=== PATIENT | male | born 1955 | race Caucasian/White ===

== ENCOUNTER 2016-11-12 01:25 | Inpatient (IN) | payer MEDICAID ==
[~2016-11-12] VITALS: Ht 157.5 cm; Wt 81.6 kg
[~2016-11-12 01:25] MED LIST: METF500T64 PO
[2016-11-12 01:29] VITALS: BP 137/63
[2016-11-12 01:50] LABS: BASOPHILS # (AUTO) 0.1 K/uL (0.00-0.22); BASOPHILS % (AUTO) 1.4 % (0.0-2.0); EOSINOPHILS # (AUTO) 0.2 K/uL (0-0.4); EOSINOPHILS % (AUTO) 3.7 % (0.0-4.0); HEMATOCRIT 37.4 % (36-52); HEMOGLOBIN 12.7 g/dL (12.0-18.0); LYMPHOCYTES # (AUTO) 1.6 K/uL (2.0-11.5); LYMPHOCYTES % (AUTO) 28.3 % (20.5-51.1); MEAN CORPUSCULAR HEMOGLOBIN 30 pg (27-31); MEAN CORPUSCULAR HGB CONC 34 g/dL (33-37); MEAN CORPUSCULAR VOLUME 88 fL (80-94); MONOCYTES # (AUTO) 0.3 K/uL (0.8-1.0); NEUTROPHILS # (AUTO) 3.4 K/uL (1.8-7.7); NEUTROPHILS % (AUTO) 60.6 % (42.2-75.2); PLATELET COUNT (AUTO) 166 K/uL (140-450); RED BLOOD CELL COUNT(AUTO) 4.27 MIL/uL (4.20-6.10); RED CELL DISTRIBUTION WIDTH 12.8 % (11.6-13.7); WHITE BLOOD COUNT (AUTO) 5.6 K/uL (4.8-10.8)
[2016-11-12 02:09] LABS: ALBUMIN 3.4 g/dL (3.4-5.0); ANION GAP 11.9 (8-16); CALCIUM 8.3 mg/dL (8.5-10.1); CARBON DIOXIDE 29.8 mmol/L (21-32); CREATININE 0.8 mg/dL (0.7-1.3); INR 0.9 (0.8-1.2); PARTIAL THROMBOPLASTIN TIME 24.3 secs (22-35.6); POTASSIUM 3.7 mmol/L (3.5-5.1); PROTHROMBIN TIME 9.1 secs (10.8-13.4); TOTAL BILIRUBIN 0.3 mg/dL (0.0-1.0); TOTAL PROTEIN, SERUM 7.3 g/dL (6.4-8.2)
--- NOTE | 2016-11-12 02:40 | NUR ---
AMBULATED TO ER BED 5
[2016-11-12] MEDS ORDERED: KETOROLAC 30 MG/ML VIAL IVP ONE (02:55)
[2016-11-12] MEDS ORDERED: ONDANSETRON 4 MG/2 ML VIAL IM/IVP PRN (03:05)
[2016-11-12] MEDS ORDERED: MORPHINE SULFATE 2 MG/ML SYR IVP PRN (03:05)
[2016-11-12] MEDS ORDERED: ACETAMINOPHEN 325 MG TAB PO PRN (03:05)
[2016-11-12] MEDS ORDERED: HYDROcodone/APAP 7.5/325 MG 1 TAB PO PRN (03:05)
[2016-11-12] MEDS ORDERED: DOCUSATE SODIUM 100 MG GELCAP PO PRN (03:05)
--- NOTE | 2016-11-12 03:15 | NUR ---
ERMD AT THE BEDSIDE EVALUATED PT
[2016-11-12] MEDS ORDERED: ASPIRIN 81 MG TAB.CHEW PO ONE (03:20)
[2016-11-12] MEDS ORDERED: NITROGLYCERIN 0.4 MG TAB SL PRN (03:20)
[2016-11-12] MEDS ORDERED: DEXTROSE 50% 50 ML SYR IVP PRN ×2 (03:35→08:20)
--- NOTE | 2016-11-12 03:44 | NUR ---
PATIENT PRESENTS TO ED WITH CHEST PAIN AND DIFF OF BREATHING 30 MINUTES, WHILE SLEEPING, DENIES N/V/D; SKIN IS PINK/WARM/DRY; AAOX4 WITH EVEN AND STEADY GAIT; LUNGS CLEAR BL; HR EVEN AND REGULAR; PT DENIES ANY FEVER,PATIENT STATES PAIN OF 0/10 AT THIS TIME; PATIENT POSITIONED FOR COMFORT; HOB ELEVATED; BEDRAILS UP X2; BED DOWN. PT AAO,NO DISTRESS NOTED.
[2016-11-12 03:46] LABS: APPEARANCE,URINE CLEAR (CLEAR); BILIRUBIN,URINE NEGATIVE (NEGATIVE); BLOOD, URINE TRACE-I (NEGATIVE); COLOR,URINE YELLOW (YELLOW); LEUKOCYTE ESTERASE ,URINE NEGATIVE (NEGATIVE); NITRITE, URINE NEGATIVE (NEGATIVE); PROTEIN,URINE NEGATIVE (NEGATIVE); UGLUCOSE 3+ (NEGATIVE); UROBILINOGEN,URINE 0.2 EU/dL (0.2 - 1)
[2016-11-12 03:52] LABS: CHOL/HDL RATIO 4.3 (1-4.5); FREE T4 (FREE THYROXINE) 1.01 ng/dL (0.76-1.46); MAGNESIUM 1.5 mg/dL (1.8-2.4); PHOSPHORUS 3.6 mg/dL (2.5-4.9); THYROID STIMULATING HORMONE 1.93 uIU/mL (0.34-3.74)
[2016-11-12 03:52] LABS: AMPHETAMINE, URINE NEG. ng/ml (NEG <=1000); BARBITURATE, URINE NEG. ng/ml (NEG <=200); BENZODIAZEPINE, URINE NEG. ng/mL (NEG <=200); CANNABINOID, URINE NEG. ng/mL (NEG <=50); COCAINE, URINE NEG. ng/mL (NEG <=300); OPIATE, URINE NEG. ng/mL (NEG <=2000); PHENCYCLIDINE SCREEN,URINE NEG. ng/mL (NEG <=25)
--- NOTE | 2016-11-12 03:59 | NUR ---
TRANSFER TO FLOOR VIA SHIRA FIGUEROA, NO DISTRESS AT THIS TIME, NO SOB, FAMILY WITH THE PT Addendum: 11/12/16 at 0438 by JOS Patient will be admitted to care of NANCY MCGARRY. Admited to TELE. Will go to room 115 Belongings list completed. Report to SAMUEL BY MAURO
[2016-11-12 04:00] VITALS: BP 130/72
[2016-11-12 04:00] LABS: BACTERIA,URINE None Seen /HPF (None Seen); RBC,URINE 0-5 (RARE) /HPF (0-5); SQUAMOUS EPITHELIAL CELL,UR 0-3 (FEW) /LPF (0-3 (FEW)); WBC,URINE 0-5 (RARE) /HPF (0-5)
--- NOTE | 2016-11-12 04:00 | NUR ---
PT ARRIVED TO UNIT VIA GURNEY. INITIAL ASSESSMENT COMPLETED. PT AAOX4; KYRGYZ SPEAKING. PT DENIES PAIN AT THIS TIME. PT AMBULATORY. PT HAS IV ON RIGHT FOREARM G 20; ASYMPTOMATIC, PATENT AND INTACT. PT 'S SKIN IS INTACT. ORIENTED PT TO ROOM AND SURROUNDINGS AND USE OF CALL LIGHT. EXPLAINED PLAN OF CARE TO PT AND HE VERBALIZES UNDERSTANDING. CALL LIGHT WITHIN REACH.
[2016-11-12] MEDS: NACL 0.9% 1,000 ML IV SCH (04:28)
[2016-11-12] MEDS ORDERED: MAG SULF 2000 MG/WATER PREMIX 50 ML IV ONE (05:50)
--- NOTE | 2016-11-12 06:21 | NUR ---
MAGNESIUM STARTED ORDERED.
[2016-11-12] MEDS ORDERED: BLOOD GLUCOSE MONITORING 1 DEV DEV FS SCH (07:30)
--- NOTE | 2016-11-12 07:38 | NUR ---
PT'S BLOOD GLUCOSE IS 281. PT NEEDS INSULIN COVERAGE. THERE IS NO INSULIN SLIDING SCALE. PAGED . AWAITING FUELER BACK. WILL ENDORSED TO SCOTT SADLER.
--- NOTE | 2016-11-12 07:39 | NUR ---
ENDORSED PLAN OF CARE TO SCOTT SADLER. PT IN STABLE CONDITION. ENDORSED TO RN ABOUT PT NOT HAVING A SLIDING SCALE FOR INSULIN COVERAGE.
--- NOTE | 2016-11-12 07:39 | NUR ---
RECEIVED REPORT FROM NIGHT NURSE, PT IS AAOX4 TURKISH SPEAKING, ON ROOM AIR, IV TO RIGHT FA 20G INFUSING WELL, SKIN INTACT, PT STATES NO SOB OR CHEST PAIN AT THIS TIME. INITIAL ASSESSMENT COMPLETED,, REVIEWED PLAN OF CARE WITH PT, PT VERBALIZED UNDERSTANDING, ALL SAFETY PRECAUTIONS MET. CALL LIGHT WITHIN REACH. WILL CONTINUE TO MONITOR.
[2016-11-12 08:00] VITALS: BP 145/89
[2016-11-12] MEDS: LISINOPRIL 10 MG TAB PO SCH (08:48)
--- NOTE | 2016-11-12 08:51 | NUR ---
DUE MEDICATIONS GIVEN EXCEPT METOPROLOL HR 56, RECHECKED BLOOD SUGAR 316, WILL MEDICATE PER MD ORDERS. ALL NEEDS ME. WILL CONTINUES TO MONITOR.
[2016-11-12] MEDS: METOPROLOL 25 MG TAB PO SCH ×2 (08:53→20:56)
[2016-11-12] MEDS: INSULIN LISPRO SLIDING SCALE 100 UNITS/ML VIAL SUBQ PRN ×4 (08:56→21:06)
[2016-11-12] MEDS ORDERED: metFORMIN 500 MG TAB PO SCH (09:00)
--- NOTE | 2016-11-12 09:10 | NUR ---
PATIENT HAS BEEN SCREENED AND CATEGORIZED MODERATE NUTRITION RISK. PATIENT WILL BE SEEN WITHIN 3-5 DAYS OF ADMISSION. 11/15/16-11/17/[address] Addendum: 11/12/16 at [address] PATIENT HAS BEEN SCREENED AND CATEGORIZED MODERATE NUTRITION RISK. PATIENT WILL BE SEEN WITHIN 3-5 DAYS OF ADMISSION. 11/14/16-11/16/[address]
--- NOTE | 2016-11-12 11:02 | NUR ---
CHECKED IN ON PT, PT CURRENTLY RESTING IN BED, NO S/S OF DISTRESS NOTED. PT STATES NO CHEST PAIN OR SOB. ALL NEEDS MET.
[2016-11-12] MEDS: BLOOD GLUCOSE MONITORING 1 DEV DEV FS SCH ×3 (11:31→21:02)
[2016-11-12 12:00] VITALS: BP 138/72
--- NOTE | 2016-11-12 13:15 | NUR ---
CHECKED IN ON PT, NO S/S OF DISTRESS OR DISCOMFORT NOTED. ALL NEEDS MET. WILL CONTINUE TO MONITOR.
--- NOTE | 2016-11-12 15:04 | NUR ---
ASSISTED PT TO RESTROOM AND BACK TO BED. ALL NEEDS MET. WILL CONTINUE TO MONITOR.
[2016-11-12 16:00] VITALS: BP 123/68
[2016-11-12] MEDS: metFORMIN 500 MG TAB PO SCH (17:21)
--- NOTE | 2016-11-12 17:25 | NUR ---
DUE MEDICATIONS GIVEN. PT TOLERATED WELL. ALL NEEDS MET. CALL LIGHT WITHIN REACH. WILL CONTINUE TO MONITOR.
--- NOTE | 2016-11-12 19:35 | NUR ---
RECEIVED REPORTS FROM DAY RN, PATIENT RESTING IN BED, FAMILY MEMBERS AT BEDSIDE. PATIENT AWAKE ALERT ORIENTED X4. NO S/S OF ACUTE DISTRESS NOTED, IV PATENT AND INTACT, INFUSING NORMAL SALINE AT 20ML/HR. CALL LIGHT WITHIN REACH, SAFETY MEASURE ENSURED, WILL CONTINUE TO MONITOR.
[2016-11-12 20:00] VITALS: BP 123/63
[2016-11-12] MEDS ORDERED: SIMVASTATIN 20 MG TAB PO SCH (21:00)
--- NOTE | 2016-11-12 21:10 | NUR ---
PM MEDICATION GIVEN EXCEPT LOPRESSOR DUE TO HEART RATE 58. PATIENT TOLERATED MEDICATION WELL. CALL LIGHT WITHIN REACH, SAFETY MEASURE ENSURED, WILL CONTINUE TO MONITOR.
--- NOTE | 2016-11-12 23:50 | NUR ---
PATIENT REPORTED HEADACHE 5/10. MEDICATED ORDERED, WILL CONTINUE TO MONITOR.
[2016-11-13] VITALS: BP 126/64
--- NOTE | 2016-11-13 02:03 | NUR ---
PATIENT ASLEEP IN BED, NO S/S OF ACUTE DISTRESS NOTED, RESPIRATION EVEN AND UNLABORED, SAFETY MEASURE ENSURED WILL CONTINUE TO MONITOR.
[2016-11-13] MEDS: NACL 0.9% 1,000 ML IV SCH (03:05)
[2016-11-13 04:00] VITALS: BP 130/66
--- NOTE | 2016-11-13 04:35 | NUR ---
PATIENT ASLEEP IN BED, NO S/S OF ACUTE DISTRESS NOTED, RESPIRATION EVEN AND UNLABORED, SAFETY MEASURE ENSURED WILL CONTINUE TO MONITOR
--- NOTE | 2016-11-13 06:30 | NUR ---
BS 183, HUMALOG 2UNITS GIVEN PER SLIDING SCALE
[2016-11-13] MEDS: BLOOD GLUCOSE MONITORING 1 DEV DEV FS SCH ×2 (06:32→12:11)
[2016-11-13] MEDS: INSULIN LISPRO SLIDING SCALE 100 UNITS/ML VIAL SUBQ PRN ×2 (06:34→12:15)
[2016-11-13 06:38] LABS: BASOPHILS # (AUTO) 0.1 K/uL (0.00-0.22); BASOPHILS % (AUTO) 1.5 % (0.0-2.0); EOSINOPHILS # (AUTO) 0.1 K/uL (0-0.4); EOSINOPHILS % (AUTO) 2.7 % (0.0-4.0); HEMATOCRIT 36.8 % (36-52); HEMOGLOBIN 12.3 g/dL (12.0-18.0); LYMPHOCYTES # (AUTO) 0.9 K/uL (2.0-11.5); MEAN CORPUSCULAR HEMOGLOBIN 30 pg (27-31); MEAN CORPUSCULAR HGB CONC 33 g/dL (33-37); MEAN CORPUSCULAR VOLUME 90 fL (80-94); MONOCYTES # (AUTO) 0.3 K/uL (0.8-1.0); MONOCYTES % (AUTO) 5.8 % (1.7-9.3); NEUTROPHILS # (AUTO) 3.1 K/uL (1.8-7.7); PLATELET COUNT (AUTO) 150 K/uL (140-450); WHITE BLOOD COUNT (AUTO) 4.5 K/uL (4.8-10.8)
[2016-11-13 06:43] LABS: ANION GAP 10.3 (8-16); CREATININE 0.8 mg/dL (0.7-1.3); POTASSIUM 4.3 mmol/L (3.5-5.1)
--- NOTE | 2016-11-13 07:25 | NUR ---
RECEIVED PT ON BED. AWAKE. ALERT ORIENTEDX4. NO SOB NOTED. DENIES ANY PAIN OR DISCOMFORT AT THIS TIME. POSITIVE BOWEL SOUNDS NOTED ON FOUR QUADRANTS. PT AMBULATORY. CONTACT ISOLATION IN PLACE. SAFETY PRECAUTION IN PLACE. CALL LIGHT WITHIN REACH.
--- NOTE | 2016-11-13 07:41 | NUR ---
ENDORSED PLAN OF CARE TO DAY RN. PATIENT IS IN STABLE CONDITION.
[2016-11-13 08:00] VITALS: BP 149/73
[2016-11-13] MEDS: metFORMIN 500 MG TAB PO SCH (08:28)
[2016-11-13] MEDS: LISINOPRIL 10 MG TAB PO SCH (08:29)
[2016-11-13] MEDS: METOPROLOL 25 MG TAB PO SCH (08:29)
[2016-11-13] MEDS ORDERED: ASPIRIN 81 MG TAB.CHEW PO SCH (09:00)
[2016-11-13 09:51] LABS: T4 (THYROXINE) 6.6 ug/dL (4.5 - 12.0)
--- NOTE | 2016-11-13 10:33 | NUR ---
DR. DUCKWORTH MADE AWARE OF LATEST MAGNESIUM LEVEL OF 1.4. WITH ORDERS MADE AND CARRIED OUT.
[2016-11-13] MEDS ORDERED: MAG SULF 2000 MG/WATER PREMIX 100 ML IV ONE (11:45)
[2016-11-13 12:00] VITALS: BP 117/64
[2016-11-13] MEDS ORDERED: ASPI81CT80 PO (12:41)
[2016-11-13] MEDS ORDERED: SIMV20TA6 PO (12:41)
--- NOTE | 2016-11-13 12:46 | NUR ---
MD PUT IN A DISCHARGE ORDER FOR PT. AND WILL CARRY OUT AFTER PT FINISHES THE PREVIOUSLY ORDERED MAGNESIUM 4G IVPB.
[2016-11-13] MEDS ORDERED: MAGNESIUM OXIDE 400 MG TAB PO SCH (13:05)
[2016-11-13] MEDS ORDERED: METF500T64 PO (13:11)
--- NOTE | 2016-11-13 14:08 | NUR ---
DR. MADDOX PUT IN AN ORDER FOR MG PO AND DC THE 2ND BAG OF MG RIDER 2G. MADE AWARE THAT 1ST BAG OF 2G MG RIDER GIVEN. TOTAL MG RIDER GIVEN 2G IVP.
--- NOTE | 2016-11-13 14:11 | NUR ---
CALLED PHARMACY SPOKE WITH AKSHAT. ACCORDING TO HIM I CAN JUST PUT THE 2ND BAG OF MG RIDER IN YELLOW BIN FOR RETURN. SINCE THE 2ND BAG OF 2G WAS NOT USED AND WAS DC.
--- NOTE | 2016-11-13 14:48 | NUR ---
DISCHARGE INSTRUCTION AND TEACHINGS GIVEN TO PT. PT VERBALIZED UNDERSTANDING. NO SOB NOTED. DENIES ANY PAIN OR DISCOMFORT TA THIS TIME. PT SIGNED DISCHARGE PAPERS.
--- NOTE | 2016-11-13 14:50 | NUR ---
NAME ARMBAND REMOVED. IV CANNULA REMOVED AND INTACT. TELEBOX REMOVED.
--- NOTE | 2016-11-13 15:05 | NUR ---
PT WHEELED OUT BY RN TO THE HOSPITAL PARKING LOT TO THEIR PRIVATE OWNED VEHICLE. NO SOB NOTED. DENIES ANY PAIN OR DISCOMFORT AT THIS TIME. PT DISCHARGED ON STABLE CONDITION.
[2016-11-15 09:05] LABS: HEMOGLOBIN A1C 10.2 % (4.8-5.6)
== END 2016-11-13 15:05 | disposition home or self-care (01) | DRG 243 ==
LOC: MED 01:25 → MTU 03:18
PROVIDERS: ADMIT Student in an Organized Health Care Education/Training Program; ATTEND Student in an Organized Health Care Education/Training Program
PROC: B246ZZZ Ultrasonography of Right and Left Heart (ICD-10-PCS; principal; 2016-11-13)
DX: K21.9 Gastro-esophageal reflux disease without esophagitis (principal); N17.0 Acute kidney failure with tubular necrosis; E11.65 Type 2 diabetes mellitus with hyperglycemia; E83.42 Hypomagnesemia; I24.9 Acute ischemic heart disease, unspecified; D68.59 Other primary thrombophilia; E78.5 Hyperlipidemia, unspecified; E66.9 Obesity, unspecified; E78.00 Pure hypercholesterolemia, unspecified; I10 Essential (primary) hypertension; I44.0 Atrioventricular block, first degree; Z68.32 Body mass index [BMI] 32.0-32.9, adult; Z85.46 Personal history of malignant neoplasm of prostate; Z79.84 Long term (current) use of oral hypoglycemic drugs; Z90.79 Acquired absence of other genital organ(s); Z79.899 Other long term (current) drug therapy; Z79.82 Long term (current) use of aspirin
CPT/HCPCS: 36415; 71010; 80048; 80053; 80305; 81001; 82150; 82948; 83036; 83690; 83735; 83880; 84100; 84436; 84439; 84443; 84479; 84484; 85025; 85610; 85730; 87081; 93005; 93925; 93970; 96374; 99285; J1815; J1885; J3475; J7030; Q0092

== ENCOUNTER 2017-02-14 08:40 | Emergency (ER) | payer MEDICAID ==
[~2017-02-14] VITALS: Ht 165.1 cm; Wt 80.7 kg
[~2017-02-14 08:40] MED LIST changes: +ACET-5629 PO; +ASPI81CT89 PO; +CLIN300C2 PO; +DOCU-299 PO; +LACT10CA PO; -METF500T64 PO; +SIMV20TA6 PO
[2017-02-14 08:50] VITALS: BP 174/83
--- NOTE | 2017-02-14 08:50 | NUR ---
PT AMBULATED TO BED 7.
--- NOTE | 2017-02-14 09:00 | NUR ---
61M BIB FAMILY C/O RIGHT LOW PELVIC INCISIONAL PAIN, PRESSURE, NON-RADIATING, 11/08 POST HERNIA REPAIR ON 02/07/17; SUSAN ANDINO DRAINAGE NOTED TO RT LOWER PELVIS AT THIS TIME; INCISION WELL APPROXIMATED WITH MAEVE AT THIS TIME; SMALL AMOUNT OF SEROSANGINEOUS DRAINAGE NOTED IN SUSAN ANDINO DRAINAGE AT THIS TIME; PT AA&OX4, PERRLA, BL LUNG SOUNDS CLEAR, RR EVEN/UNLABORED, SKIN IS WARM/DRY AT THIS TIME; PT STATES NO N/V/D AT THIS TIME; STEADY GAIT; PT RESTING IN BED WITH HOB ELEVATED AND IN LOWEST POSITION; POSITIONED FOR COMFORT; ER MD MADE AWARE OF STATUS; WILL CONTINUE TO MONITOR.
--- NOTE | 2017-02-14 09:09 | NUR ---
ER MD DR. VARGAS EVALUATING PT AT BEDSIDE.
[2017-02-14] MEDS ORDERED: ONDANSETRON 4 MG ODT PO ONE (09:15)
[2017-02-14] MEDS ORDERED: MORPHINE SULFATE 4 MG/ML SYR IM ONE (09:15)
[2017-02-14 10:19] VITALS: BP 162/86
--- NOTE | 2017-02-14 10:19 | NUR ---
Patient discharged with v/s stable. Patient BP 162/86 at discharge. Patient states no pain, dizziness, blurry vision, or headache at this time. ER MD notified and ok to discharge. Written and verbal after care instructions given and explained. Patient alert, oriented and verbalized understanding of instructions. Ambulatory with steady gait. All questions addressed prior to discharge. ID band removed. Patient advised to follow up with PMD. Rx of NORCO 5MG-325MG TAB given. Patient educated on indication of medication including possible reaction and side effects. Opportunity to ask questions provided and answered.
== END 2017-02-14 10:19 | disposition home or self-care (01) ==
LOC: MED 08:40
DX: G89.18 Other acute postprocedural pain (principal); E11.9 Type 2 diabetes mellitus without complications; Z85.46 Personal history of malignant neoplasm of prostate; Z79.899 Other long term (current) drug therapy; Z98.890 Other specified postprocedural states
CPT/HCPCS: 96372; 99283; J2270; S0119

== ENCOUNTER 2018-07-25 15:30 | Emergency (ER) | payer MEDICAID ==
[~2018-07-25] VITALS: Ht 165.1 cm; Wt 87.1 kg
[~2018-07-25 15:30] MED LIST changes: +ASPI-1718 PO; -ASPI81CT89 PO
[2018-07-25 15:41] VITALS: BP 134/70
--- NOTE | 2018-07-25 16:05 | NUR ---
Note undone in EDM - 07/25/18 at 1806 by LEATHA 62 YO M BIB SELF C/O LEFT LOWER BACK PAIN 11/08. DENIES ANY TRAUMA/INJURY. PT DENIES HAVING FEVERS, DYSURIA, -N/V/D. PMH OF DM. PLACED IN BED, CONNECTED TO MONITOR. WAITING FOR ERMD FOR EVALUATION.
--- NOTE | 2018-07-25 17:17 | NUR ---
PT TO ER BED 9
--- NOTE | 2018-07-25 17:18 | NUR ---
62 YO M BIB SELF C/O LEFT LOWER BACK PAIN 11/08. DENIES ANY TRAUMA/INJURY. PT DENIES HAVING FEVERS, DYSURIA, -N/V/D. PMH OF DM. PLACED IN BED, CONNECTED TO MONITOR. WAITING FOR ERMD FOR EVALUATION.
--- NOTE | 2018-07-25 19:15 | NUR ---
Patient discharged with v/s stable. Patient acting appropriatly, patient states he is ready to go home. Accu check 98 at this time. Written and verbal after care instructions given and explained. Patient alert, oriented and verbalized understanding of instructions. Ambulatory with steady gait. All questions addressed prior to discharge. ID band removed. Patient advised to follow up with PMD. Rx of Ibuprofen, and Percocet given. Patient educated on indication of medication including possible reaction and side effects. Opportunity to ask questions provided and answered.
[2018-07-25 19:22] VITALS: BP 143/47
== END 2018-07-25 19:15 | disposition home or self-care (01) ==
LOC: MED 15:30
DX: M54.5 Low back pain (principal); E11.9 Type 2 diabetes mellitus without complications; Z79.82 Long term (current) use of aspirin; Z79.899 Other long term (current) drug therapy; Z79.2 Long term (current) use of antibiotics
CPT/HCPCS: 72100; 82948; 99283

== ENCOUNTER 2018-08-31 19:33 | Emergency (ER) | payer MEDICAID ==
[~2018-08-31] VITALS: Ht 157.5 cm; Wt 87.1 kg
[2018-08-31 19:43] VITALS: BP 152/90
--- NOTE | 2018-08-31 19:43 | NUR ---
TO BED # 10 AMBULATORY
--- NOTE | 2018-08-31 19:50 | NUR ---
62/M PRESENTS TO ED, C/O L MID BACK PAIN, X6 HRS. NO OBVIOUS ABNORMALITY, BRUISING OR SWELLING NOTED ON BACK. PT DENIES TRAUMA/INJURY. DENIES FEVER, CP, SOB, N/V/D, CONSTIPATION OR DIARRHEA. PT AOX4, GCS 15, SKIN NORMAL DRY AND INTACT, RR EVEN AND UNLABORED. HX DM, PROSTATE SURGERY
[2018-08-31] MEDS ORDERED: NACL 0.9% 1,000 ML IV SCH (20:07)
[2018-08-31] MEDS ORDERED: KETOROLAC 30 MG/ML VIAL IVP ONE (20:10)
[2018-08-31 20:39] LABS: APPEARANCE,URINE HAZY (CLEAR); BILIRUBIN,URINE NEGATIVE (NEGATIVE); COLOR,URINE YELLOW (YELLOW); LEUKOCYTE ESTERASE ,URINE NEGATIVE (NEGATIVE); NITRITE, URINE POSITIVE (NEGATIVE); PH,URINE 6.5 (5.0-9.0); UGLUCOSE 3+ (NEGATIVE)
[2018-08-31 20:41] LABS: BLOOD, URINE NEGATIVE (NEGATIVE)
[2018-08-31 21:00] LABS: BASOPHILS % (AUTO) 0.5 % (0.0-2.0); EOSINOPHILS # (AUTO) 0.2 K/uL (0-0.4); EOSINOPHILS % (AUTO) 3.9 % (0.0-4.0); HEMATOCRIT 36.3 % (36-52); HEMOGLOBIN 12.3 g/dL (12.0-18.0); LYMPHOCYTES # (AUTO) 1.7 K/uL (2.0-11.5); LYMPHOCYTES % (AUTO) 36.3 % (20.5-51.1); MEAN CORPUSCULAR HEMOGLOBIN 30 pg (27-31); MEAN CORPUSCULAR HGB CONC 34 g/dL (33-37); MEAN CORPUSCULAR VOLUME 88.6 fL (80-94); MONOCYTES # (AUTO) 0.4 K/uL (0.8-1.0); MONOCYTES % (AUTO) 7.9 % (1.7-9.3); NEUTROPHILS # (AUTO) 2.4 K/uL (1.8-7.7); NEUTROPHILS % (AUTO) 51.4 % (42.2-75.2); PLATELET COUNT (AUTO) 157 K/uL (140-450); RED CELL DISTRIBUTION WIDTH 13.9 % (11.6-13.7); WHITE BLOOD COUNT (AUTO) 4.6 K/uL (4.8-10.8)
[2018-08-31 21:09] LABS: ALBUMIN 3.1 g/dL (3.4-5.0); ANION GAP 8.8 (8-16); CARBON DIOXIDE 30.3 mmol/L (21-32); CREATININE 0.9 mg/dL (0.7-1.3); POTASSIUM 4.1 mmol/L (3.5-5.1); TOTAL BILIRUBIN 0.2 mg/dL (0.0-1.0)
--- NOTE | 2018-08-31 22:00 | NUR ---
PT LAYING IN BED, RR EVEN AND UNLABORED. PT REPORTS 8/10 L MID BACK PAIN. BLOOD GLUCOSE 368. ER MD MADE AWARE.
--- NOTE | 2018-08-31 22:30 | NUR ---
DR COFFMAN AT BEDSIDE
[2018-08-31] MEDS ORDERED: INSULIN REGULAR, HUMAN 100 UNIT/ML VIAL IVP ONE (22:50)
[2018-08-31 23:36] VITALS: BP 158/82
--- NOTE | 2018-08-31 23:36 | NUR ---
Patient discharged with v/s stable. Written and verbal after care instructions given and explained. Patient alert, oriented and verbalized understanding of instructions. Ambulatory with steady gait. All questions addressed prior to discharge. ID band removed. Patient advised to follow up with PMD. Rx of DOXYCYLINE 100MG AND MOTRIN 800MG given. Patient educated on indication of medication including possible reaction and side effects. Opportunity to ask questions provided and answered.
== END 2018-08-31 23:36 | disposition home or self-care (01) ==
LOC: MED 19:33
DX: S20.212A Contusion of left front wall of thorax, initial encounter (principal); E11.65 Type 2 diabetes mellitus with hyperglycemia; N39.0 Urinary tract infection, site not specified; Z79.82 Long term (current) use of aspirin; Z79.891 Long term (current) use of opiate analgesic; Z79.2 Long term (current) use of antibiotics; Z79.899 Other long term (current) drug therapy; Z98.890 Other specified postprocedural states; X58.XXXA Exposure to other specified factors, initial encounter; Y93.89 Activity, other specified; Y92.89 Other specified places as the place of occurrence of the external cause; Y99.8 Other external cause status
CPT/HCPCS: 36415; 74176; 80053; 81003; 82948; 83690; 85025; 96361; 96374; 96375; 99284; J1815; J1885; J7030

== ENCOUNTER 2019-03-26 09:53 | Emergency (ER) | payer MEDICAID ==
[~2019-03-26] VITALS: Ht 157.5 cm; Wt 85.7 kg
[~2019-03-26 09:53] MED LIST changes: +SIMV-30 PO; -SIMV20TA6 PO
[2019-03-26 09:58] VITALS: BP 169/68
--- NOTE | 2019-03-26 10:02 | NUR ---
PATIENT AMBULATED WITH STEADY GAIT TO BED 4.
--- NOTE | 2019-03-26 10:13 | NUR ---
63 y/o male presenting with c/c of left side flank pain x3 days, per patient 12/09 with pulsating sensation. patient denies n/v/d and no burning on urination. pt nka. pt with medical hx of DM and prostate CA. pt takes medication for diabetes. last oral intake yesterday with no problems on appetite and has not taken any medication for pain. side rail x1.
--- NOTE | 2019-03-26 10:20 | NUR ---
Dr. Li at bedside
[2019-03-26] MEDS ORDERED: KETOROLAC 60 MG/2 ML VIAL IM ONE (10:35)
--- NOTE | 2019-03-26 10:39 | NUR ---
lab at bedside
--- NOTE | 2019-03-26 10:40 | NUR ---
TORADOL IM ADMINISTERED. PTS PAIN 810 AT THIS TIME
--- NOTE | 2019-03-26 10:46 | NUR ---
URINE COLLECTED AND URINE DIP PERFORMED
--- NOTE | 2019-03-26 10:47 | NUR ---
PT GOING TO CT VIA WHEELCHAIR
[2019-03-26 10:53] LABS: BASOPHILS % (AUTO) 0.4 % (0.0-2.0); EOSINOPHILS # (AUTO) 0.2 K/uL (0-0.4); EOSINOPHILS % (AUTO) 3.3 % (0.0-4.0); HEMATOCRIT 40.7 % (36-52); HEMOGLOBIN 13.8 g/dL (12.0-18.0); LYMPHOCYTES # (AUTO) 1.5 K/uL (2.0-11.5); LYMPHOCYTES % (AUTO) 31.1 % (20.5-51.1); MEAN CORPUSCULAR HEMOGLOBIN 31 pg (27-31); MEAN CORPUSCULAR HGB CONC 34 g/dL (33-37); MEAN CORPUSCULAR VOLUME 90.9 fL (80-94); MONOCYTES # (AUTO) 0.3 K/uL (0.8-1.0); MONOCYTES % (AUTO) 6.2 % (1.7-9.3); NEUTROPHILS # (AUTO) 2.8 K/uL (1.8-7.7); PLATELET COUNT (AUTO) 182 K/uL (140-450); RED BLOOD CELL COUNT(AUTO) 4.47 MIL/uL (4.20-6.10); WHITE BLOOD COUNT (AUTO) 4.7 K/uL (4.8-10.8)
--- NOTE | 2019-03-26 10:58 | NUR ---
pt back from CT scan ; transported via wheelchair by cutter grind tool technician
[2019-03-26 11:11] LABS: APPEARANCE,URINE CLEAR (CLEAR); BILIRUBIN,URINE NEGATIVE (NEGATIVE); BLOOD, URINE NEGATIVE (NEGATIVE); COLOR,URINE YELLOW (YELLOW); LEUKOCYTE ESTERASE ,URINE NEGATIVE (NEGATIVE); NITRITE, URINE NEGATIVE (NEGATIVE); PH,URINE 6.5 (5.0-9.0); UGLUCOSE 2+ (NEGATIVE)
[2019-03-26 11:24] LABS: POTASSIUM 4.2 mmol/L (3.5-5.1)
[2019-03-26 11:25] LABS: ALBUMIN 3.3 g/dL (3.4-5.0); CARBON DIOXIDE 28.2 mmol/L (21-32); CREATININE 0.8 mg/dL (0.7-1.3); TOTAL BILIRUBIN 0.3 mg/dL (0.0-1.0)
[2019-03-26 11:40] LABS: RBC,URINE 0-5 /HPF (0-5); WBC,URINE 0-5 /HPF (0-5)
[2019-03-26 11:52] VITALS: BP 166/85
== END 2019-03-26 11:52 | disposition home or self-care (01) ==
LOC: MED 09:53
DX: R10.9 Unspecified abdominal pain (principal); R03.0 Elevated blood-pressure reading, without diagnosis of hypertension; E11.9 Type 2 diabetes mellitus without complications; Z85.46 Personal history of malignant neoplasm of prostate; Z79.82 Long term (current) use of aspirin; Z79.899 Other long term (current) drug therapy
CPT/HCPCS: 36415; 74176; 80053; 81001; 85025; 96372; 99284; J1885

== ENCOUNTER 2019-06-07 11:20 | Emergency (ER) | payer MEDICAID ==
[~2019-06-07] VITALS: Ht 167.6 cm; Wt 77.1 kg
[2019-06-07 11:28] VITALS: BP 131/74
--- NOTE | 2019-06-07 11:32 | NUR ---
Patient ambulated to bed 12. RN evaluating patient at bedside.
[2019-06-07] MEDS ORDERED: ACETAMINOPHEN EXTRA STRENGTH 500 MG TAB PO ONE (11:35)
--- NOTE | 2019-06-07 11:35 | NUR ---
Dr. Bonilla is evaluating the patient at bedside.
--- NOTE | 2019-06-07 11:48 | NUR ---
63 Y/O MALE C/O FEVER AND BODY ACHES X 2 DAYS. STATES 7/10 CHEST PAIN WORSE UPON PALPATION. RR EVEN AND UNLABORED. STATES PERIODIC DRY COUGH. PT STATES HE GOT INFLUENZA VACCINE ON TUESDAY. PT PRESENTS TO ER FEBRILE. DENIES N/V/D. PT SITTING UPRIGHT IN BED CALM AND PLESANT. MEDHX: DM ALLERGIES: NKA
--- NOTE | 2019-06-07 11:52 | NUR ---
INFLUENZA SWAB COLLECTED
[2019-06-07 12:37] LABS: BASOPHILS % (AUTO) 0.2 % (0.0-2.0); HEMATOCRIT 40.3 % (36-52); HEMOGLOBIN 13.4 g/dL (12.0-18.0); LYMPHOCYTES # (AUTO) 0.6 K/uL (2.0-11.5); LYMPHOCYTES % (AUTO) 17.3 % (20.5-51.1); MEAN CORPUSCULAR HEMOGLOBIN 30 pg (27-31); MEAN CORPUSCULAR HGB CONC 33 g/dL (33-37); MEAN CORPUSCULAR VOLUME 89.6 fL (80-94); MONOCYTES # (AUTO) 0.2 K/uL (0.8-1.0); MONOCYTES % (AUTO) 5.8 % (1.7-9.3); NEUTROPHILS # (AUTO) 2.6 K/uL (1.8-7.7); NEUTROPHILS % (AUTO) 76.7 % (42.2-75.2); PLATELET COUNT (AUTO) 108 K/uL (140-450); RED CELL DISTRIBUTION WIDTH 13.5 % (11.6-13.7); WHITE BLOOD COUNT (AUTO) 3.4 K/uL (4.8-10.8)
[2019-06-07 12:56] LABS: ALBUMIN 2.8 g/dL (3.4-5.0); CARBON DIOXIDE 28.7 mmol/L (21-32); POTASSIUM 4.7 mmol/L (3.5-5.1); TOTAL BILIRUBIN 0.3 mg/dL (0.0-1.0)
--- NOTE | 2019-06-07 14:06 | NUR ---
NADR, PT LOW GRADE TEMP UPON DISCHARGE
[2019-06-07 14:07] VITALS: BP 142/81
--- NOTE | 2019-06-07 14:07 | NUR ---
Patient discharged with v/s stable. Written and verbal after care instructions given and explained. Patient alert, oriented and verbalized understanding of instructions. Ambulatory with steady gait. All questions addressed prior to discharge. ID band removed. Patient advised to follow up with PMD. Rx of ZOFRAN AND CODIENE given. Patient educated on indication of medication including possible reaction and side effects. Opportunity to ask questions provided and answered. DR KIRKLAND EXPLAINED DISCHARGE INSTRUCTIONS TO PT IN [place] PRIOR TO DISCHARGE
== END 2019-06-07 14:07 | disposition home or self-care (01) ==
LOC: MED 11:20
DX: J11.1 Influenza due to unidentified influenza virus with other respiratory manifestations (principal); E11.9 Type 2 diabetes mellitus without complications; Z85.9 Personal history of malignant neoplasm, unspecified; Z79.899 Other long term (current) drug therapy
CPT/HCPCS: 36415; 71045; 80053; 84484; 85025; 87804; 93005; 99284; Q0092

== ENCOUNTER 2019-06-09 21:05 | Emergency (ER) | payer MEDICAID ==
[~2019-06-09] VITALS: Ht 165.1 cm; Wt 74.8 kg
[2019-06-09 21:15] VITALS: BP 131/76
--- NOTE | 2019-06-09 21:18 | NUR ---
TO LOBBY A/W BED AMBULATORY
--- NOTE | 2019-06-09 21:46 | NUR ---
PATIENT AMB TO [facility] WITH FAMILY.
--- NOTE | 2019-06-09 21:54 | NUR ---
63 Y/O MALE PRESENTS WITH DRY COUGH WITH CHEST PAIN RADIATING TO BACK X3 DAYS. DENIES ANY RECENT ILLNESS. DENIES N/V/D. RESP EVEN AND UNLABORED. LUNG SOUNDS CLEAR IN BILAT LOBES. NO ACCESSORY MUSCLE USE NOTED. BOWEL SOUNDS NORMOACTIVE IN ALL QUADRANTS. CAP REFILL <3. PT WAS IN ER LAST NIGHT FOR COUGH AND GIVEN PROMETHAZINE, BUT PT STATES HE HAS GOTTEN WORSE AND MEDICATION IS NOT HELPING. PMH: DANIELA HENNING
--- NOTE | 2019-06-09 22:42 | NUR ---
patient amb to bed 4.
--- NOTE | 2019-06-09 23:00 | NUR ---
PATIENT SUPINE IN BED. AT BEDSIDE. NO NEEDS STATED AT THIS TIME. INFORMED WE ARE AWAITING TEST RESULTS. STATES UNDERSTANDING.
[2019-06-09] MEDS ORDERED: ACETAMINOPHEN EXTRA STRENGTH 500 MG TAB PO ONE (23:05)
[2019-06-10 00:32] VITALS: BP 128/72
== END 2019-06-10 00:33 | disposition home or self-care (01) ==
LOC: MED 21:05
DX: J11.1 Influenza due to unidentified influenza virus with other respiratory manifestations (principal); E11.9 Type 2 diabetes mellitus without complications; Z85.46 Personal history of malignant neoplasm of prostate; Z79.82 Long term (current) use of aspirin; Z79.899 Other long term (current) drug therapy
CPT/HCPCS: 36600; 71045; 82803; 93005; 99283; Q0092

== ENCOUNTER 2021-01-24 18:54 | Emergency (ER) | payer MEDICAID ==
[~2021-01-24] VITALS: Ht 167.6 cm; Wt 73.9 kg
[~2021-01-24 18:54] MED LIST changes: -ASPI-1718 PO; +ASPI-1822 PO
[2021-01-24 19:15] VITALS: BP 149/71
--- NOTE | 2021-01-24 19:15 | NUR ---
TO BED AMBULATORY
--- NOTE | 2021-01-24 19:31 | NUR ---
65 yo m bib self with c/c of L flank pain 9/10 x4days. pt states pain is constant, nonrad, and feels sob when pain worsens. pt denies aggrevating factors. denies taking medication for pain. -n/v/d, fever. -dysuria. bed locked in lowest position, side rails x2. pt given urine cup, states he does not have to go at this time. hx: dm surg:prostate removed 2015 rx: insulin, oral med for dm (unable to recall) denies allerg
[2021-01-24] MEDS ORDERED: ACETAMINOPHEN EXTRA STRENGTH 500 MG TAB PO ONE (19:50)
[2021-01-24 20:15] LABS: BASOPHILS % (AUTO) 0.2 % (0.0-2.0); EOSINOPHILS # (AUTO) 0.1 K/uL (0-0.4); EOSINOPHILS % (AUTO) 0.7 % (0.0-4.0); HEMATOCRIT 43.7 % (36-52); HEMOGLOBIN 14.7 g/dL (12.0-18.0); LYMPHOCYTES # (AUTO) 0.9 K/uL (2.0-11.5); LYMPHOCYTES % (AUTO) 7.9 % (20.5-51.1); MEAN CORPUSCULAR HEMOGLOBIN 30 pg (27-31); MEAN CORPUSCULAR HGB CONC 34 g/dL (33-37); MEAN CORPUSCULAR VOLUME 90.4 fL (80-94); MONOCYTES # (AUTO) 0.5 K/uL (0.8-1.0); MONOCYTES % (AUTO) 4.3 % (1.7-9.3); NEUTROPHILS % (AUTO) 86.9 % (42.2-75.2); PLATELET COUNT (AUTO) 185 K/uL (140-450); RED BLOOD CELL COUNT(AUTO) 4.83 MIL/uL (4.20-6.10); RED CELL DISTRIBUTION WIDTH 14.5 % (11.6-13.7); WHITE BLOOD COUNT (AUTO) 11.5 K/uL (4.8-10.8)
[2021-01-24 20:30] LABS: ALBUMIN 4.1 g/dL (3.4-5.0); ANION GAP 12.7 (8-16); CARBON DIOXIDE 28.9 mmol/L (21-32); CREATININE 0.9 mg/dL (0.6-1.3); POTASSIUM 3.6 mmol/L (3.5-5.1); TOTAL BILIRUBIN 0.3 mg/dL (0.0-1.0)
--- NOTE | 2021-01-24 20:56 | NUR ---
taken to ct via w/c
[2021-01-24 21:02] LABS: APPEARANCE,URINE CLEAR (CLEAR); BILIRUBIN,URINE NEGATIVE (NEGATIVE); BLOOD, URINE TRACE-I (NEGATIVE); COLOR,URINE YELLOW (YELLOW); LEUKOCYTE ESTERASE ,URINE NEGATIVE (NEGATIVE); NITRITE, URINE NEGATIVE (NEGATIVE); PH,URINE 5.5 (5.0-9.0); UGLUCOSE NEGATIVE (NEGATIVE)
[2021-01-24 21:18] LABS: RBC,URINE 0-5 /HPF (0-5); WBC,URINE 0-5 /HPF (0-5)
[2021-01-24 21:19] LABS: YEAST,URINE None Seen /HPF (None Seen)
--- NOTE | 2021-01-24 22:09 | NUR ---
pt is awake and alert. vss. pt in stable condition. all needs met at this time.
[2021-01-24] MEDS ORDERED: ACET-10509 PO (23:29)
[2021-01-24 23:37] VITALS: BP 146/68
== END 2021-01-24 23:37 | disposition home or self-care (01) ==
LOC: MED 18:54
DX: R10.9 Unspecified abdominal pain (principal); R42 Dizziness and giddiness; E11.9 Type 2 diabetes mellitus without complications
CPT/HCPCS: 36415; 71275; 74174; 80053; 81001; 83690; 84484; 85025; 93005; 99285; Q9967

== ENCOUNTER 2021-10-14 10:57 | Emergency (ER) | payer MEDICAID ==
[~2021-10-14] VITALS: Ht 160 cm; Wt 83.9 kg
[~2021-10-14 10:57] MED LIST changes: +ACET-10509 PO
[2021-10-14 11:18] VITALS: BP 141/69
--- NOTE | 2021-10-14 11:20 | NUR ---
65 Y/O MALE BIB SELF C/O NON-RADIATING L FLANK PAIN X2 DAYS. PAIN IS NON-RADIATING. PT STATES HE HAS NOT TAKEN MEDICATIONS PRIOR TO ARRIVAL. PT DENIES ANY ALLEVIATING OR AGGREVATING FACTORS.PT DENIES N,V. PT DENIES HEMATURIA. PT DENIES URINARY SYMPTOMS. PT DENIES CHEST PAIN, SOB. PMH: DENIES MEDS: DENIES
--- NOTE | 2021-10-14 11:25 | NUR ---
PT AMB TO BED 9.
[2021-10-14] MEDS ORDERED: KETOROLAC 30 MG/ML VIAL IM ONE (12:05)
[2021-10-14] MEDS ORDERED: ACETAMINOPHEN EXTRA STRENGTH 500 MG TAB PO ONE (12:05)
[2021-10-14 12:47] LABS: BASOPHILS % (AUTO) 0.6 % (0.0-2.0); EOSINOPHILS # (AUTO) 0.2 K/uL (0-0.4); EOSINOPHILS % (AUTO) 3.4 % (0.0-4.0); HEMATOCRIT 37.5 % (36-52); HEMOGLOBIN 12.7 g/dL (12.0-18.0); LYMPHOCYTES # (AUTO) 1.6 K/uL (2.0-11.5); LYMPHOCYTES % (AUTO) 28.8 % (20.5-51.1); MEAN CORPUSCULAR HEMOGLOBIN 30 pg (27-31); MEAN CORPUSCULAR HGB CONC 34 g/dL (33-37); MONOCYTES # (AUTO) 0.4 K/uL (0.8-1.0); MONOCYTES % (AUTO) 6.7 % (1.7-9.3); NEUTROPHILS # (AUTO) 3.3 K/uL (1.8-7.7); NEUTROPHILS % (AUTO) 60.5 % (42.2-75.2); PLATELET COUNT (AUTO) 198 K/uL (140-450); RED BLOOD CELL COUNT(AUTO) 4.17 MIL/uL (4.20-6.10); RED CELL DISTRIBUTION WIDTH 13.9 % (11.6-13.7); WHITE BLOOD COUNT (AUTO) 5.4 K/uL (4.8-10.8)
[2021-10-14 12:54] LABS: ANION GAP 9.1 (8-16); CARBON DIOXIDE 27.9 mmol/L (21-32); CREATININE 0.8 mg/dL (0.6-1.3)
[2021-10-14 13:26] LABS: APPEARANCE,URINE CLEAR (CLEAR); BILIRUBIN,URINE NEGATIVE (NEGATIVE); BLOOD, URINE TRACE-I (NEGATIVE); COLOR,URINE YELLOW (YELLOW); LEUKOCYTE ESTERASE ,URINE NEGATIVE (NEGATIVE); NITRITE, URINE NEGATIVE (NEGATIVE); PH,URINE 5.5 (5.0-9.0); UGLUCOSE NEGATIVE (NEGATIVE)
[2021-10-14 13:51] LABS: RBC,URINE 0-5 /HPF (0-5); WBC,URINE NONE SEEN /HPF (0-5)
[2021-10-14] MEDS ORDERED: CYCL-711 PO (14:16)
[2021-10-14] MEDS ORDERED: NAPR-54 PO (14:16)
--- NOTE | 2021-10-14 14:33 | NUR ---
Patient discharged with v/s stable. Written and verbal after care instructions given and explained. Patient alert, oriented and verbalized understanding of instructions. Ambulatory with steady gait. All questions addressed prior to discharge. ID band removed. Patient advised to follow up with PMD. Rx of CYCLOBENZAPRIN HCI, NAPROXEN given. Opportunity to ask questions provided and answered.
== END 2021-10-14 14:33 | disposition home or self-care (01) ==
LOC: MED 10:57
DX: R10.9 Unspecified abdominal pain (principal); M54.9 Dorsalgia, unspecified; E11.9 Type 2 diabetes mellitus without complications; Z85.46 Personal history of malignant neoplasm of prostate; Z79.899 Other long term (current) drug therapy; Z79.891 Long term (current) use of opiate analgesic; Z79.1 Long term (current) use of non-steroidal anti-inflammatories (NSAID); Z79.82 Long term (current) use of aspirin
CPT/HCPCS: 36415; 80048; 81001; 82948; 85025; 96372; 99283; J1885

== ENCOUNTER 2022-01-01 12:20 | Emergency (ER) | payer BC, MEDICAID ==
[~2022-01-01] VITALS: Ht 154.9 cm; Wt 74.8 kg
[~2022-01-01 12:20] MED LIST changes: +CYCL-711 PO; +NAPR-54 PO
[2022-01-01 12:33] VITALS: BP 127/62
[2022-01-01] MEDS ORDERED: ACETAMINOPHEN EXTRA STRENGTH 500 MG TAB PO ONE (12:45)
--- NOTE | 2022-01-01 14:25 | NUR ---
DR HUGHES EVALUATING PT IN CHAIR C
[2022-01-01] MEDS ORDERED: KETOROLAC 60 MG/2 ML VIAL IM ONE (14:30)
--- NOTE | 2022-01-01 14:45 | NUR ---
66 y/o male, pt presents to ed with c/o body aches, right side of his neck, and headache for one week. Pt states he has alos been having fever, chills, and nausea. Pt denies vomiting, chest pain, cough or sob at this time. pmh: prostate ca, dm2 nka
--- NOTE | 2022-01-01 15:17 | NUR ---
covid (jennifer) + flu collected and walked to lab
[2022-01-01 15:40] VITALS: BP 122/59
[2022-01-01] MEDS ORDERED: IBUP-2213 PO (15:56)
--- NOTE | 2022-01-01 16:00 | NUR ---
Patient discharged with v/s stable. Written and verbal after care instructions given and explained. Patient alert, oriented and verbalized understanding of instructions. Ambulatory with steady gait. All questions addressed prior to discharge. ID band removed. Patient advised to follow up with PMD. Rx of IBU given. Patient educated on indication of medication including possible reaction and side effects. Opportunity to ask questions provided and answered.
== END 2022-01-01 16:00 | disposition home or self-care (01) ==
LOC: MED 12:20
DX: R50.9 Fever, unspecified (principal); Z20.822 Contact with and (suspected) exposure to COVID-19; M79.10 Myalgia, unspecified site; M54.2 Cervicalgia; R51.9 Headache, unspecified; E11.9 Type 2 diabetes mellitus without complications; Z79.899 Other long term (current) drug therapy; Z79.82 Long term (current) use of aspirin; Z85.46 Personal history of malignant neoplasm of prostate
CPT/HCPCS: 87426; 87804; 96372; 99283; J1885

== ENCOUNTER 2022-10-31 15:18 | Emergency (ER) | payer BC, MEDICAID ==
[~2022-10-31] VITALS: Ht 167.6 cm; Wt 83.9 kg
[~2022-10-31 15:18] MED LIST changes: +IBUP-2213 PO
[2022-10-31 15:45] VITALS: BP 138/93; PULSE 62; RESP 18; TEMP 98.2; O2SAT 98
[2022-10-31 16:52] LABS: BASOPHILS # (AUTO) 0.1 K/uL (0.00-0.22); EOSINOPHILS # (AUTO) 0.2 K/uL (0-0.4); EOSINOPHILS % (AUTO) 1.9 % (0.0-4.0); HEMATOCRIT 37.4 % (36-52); LYMPHOCYTES # (AUTO) 1.7 K/uL (2.0-11.5); LYMPHOCYTES % (AUTO) 19.8 % (20.5-51.1); MEAN CORPUSCULAR HEMOGLOBIN 30 pg (27-31); MEAN CORPUSCULAR HGB CONC 35 g/dL (33-37); MEAN CORPUSCULAR VOLUME 86.7 fL (80-94); MONOCYTES # (AUTO) 0.6 K/uL (0.8-1.0); MONOCYTES % (AUTO) 6.7 % (1.7-9.3); NEUTROPHILS # (AUTO) 6.2 K/uL (1.8-7.7); NEUTROPHILS % (AUTO) 70.6 % (42.2-75.2); PLATELET COUNT (AUTO) 194 K/uL (140-450); RED BLOOD CELL COUNT(AUTO) 4.32 MIL/uL (4.20-6.10); WHITE BLOOD COUNT (AUTO) 8.7 K/uL (4.8-10.8)
--- NOTE | 2022-10-31 17:19 | NUR ---
First contact with pt. Pt bibs for head ache x 1 week that radiates to upper back. Pt denies truama. Pain is constant, radiates to back, intermittent, worse with activity. Pt is a/o x 4, vss, no ss of acute distress, breathing equal and unlabored, speech clear. Labs drawn by lab.
[2022-10-31 17:54] LABS: ALBUMIN 3.3 g/dL (3.4-5.0); ANION GAP 11.7 (8-16); ASPARTATE AMINOTRANSFERASE 15 U/L (15-37); CARBON DIOXIDE 26.4 mmol/L (21-32); CHLORIDE 104 mmol/L (98-107); GFR ARICAN-AMERICAN 96 mL/min (>90); GLUCOSE 212 mg/dL (74-106); POTASSIUM 4.1 mmol/L (3.5-5.1); SODIUM SERUM 138 mmol/L (136-145); TOTAL BILIRUBIN 0.4 mg/dL (0.0-1.0); UREA NITROGEN, BLOOD 17 mg/dL (7-18)
[2022-10-31] MEDS ORDERED: IBUP-2213 PO (18:08)
[2022-10-31 18:40] VITALS: BP 139/93; PULSE 92; RESP 18; O2SAT 98
--- NOTE | 2022-10-31 18:41 | NUR ---
Patient discharged with v/s stable. Written and verbal after care instructions given and explained. Patient alert, oriented and verbalized understanding of instructions. Ambulatory with steady gait. All questions addressed prior to discharge. ID band removed. Patient advised to follow up with PMD. Rx paper given. Patient educated on indication of medication including possible reaction and side effects. Opportunity to ask questions provided and answered.
== END 2022-10-31 18:41 | disposition home or self-care (01) ==
LOC: MED 15:18
DX: R07.89 Other chest pain (principal); M77.8 Other enthesopathies, not elsewhere classified; E11.65 Type 2 diabetes mellitus with hyperglycemia; Z85.46 Personal history of malignant neoplasm of prostate; Z79.899 Other long term (current) drug therapy; Z79.1 Long term (current) use of non-steroidal anti-inflammatories (NSAID); Z79.82 Long term (current) use of aspirin; Z79.2 Long term (current) use of antibiotics
CPT/HCPCS: 36415; 71045; 73030; 80053; 84484; 85025; 93005; 99285

== ENCOUNTER 2023-05-28 20:54 | Emergency (ER) | payer BC ==
[~2023-05-28] VITALS: Ht 157.5 cm; Wt 88.5 kg
[2023-05-28 21:05] VITALS: BP 147/66; PULSE 87; RESP 19; TEMP 99.2; O2SAT 98
[2023-05-28 23:03] VITALS: TEMP 99
[2023-05-28] MEDS ORDERED: KETOROLAC 30 MG/ML VIAL IM ONE (23:05)
[2023-05-28 23:18] LABS: FLU A ANTIGEN negative (NEGATIVE); FLU B ANTIGEN negative (NEGATIVE)
[2023-05-29 00:06] LABS: BILIRUBIN,URINE NEGATIVE (NEGATIVE); BLOOD, URINE 2+ (NEGATIVE); COLOR,URINE YELLOW (YELLOW); LEUKOCYTE ESTERASE ,URINE 1+ (NEGATIVE); NITRITE, URINE NEGATIVE (NEGATIVE); PH,URINE 7.5 (5.0-9.0); PROTEIN,URINE 2+ (NEGATIVE); UGLUCOSE NEGATIVE (NEGATIVE); UROBILINOGEN,URINE 0.2 EU/dL (0.2 - 1)
[2023-05-29 00:12] LABS: APPEARANCE,URINE HAZY (CLEAR)
[2023-05-29 00:21] LABS: BACTERIA,URINE 2+ /HPF (None Seen); RBC,URINE 0-5 /HPF (0-5); SQUAMOUS EPITHELIAL CELL,UR 0-3 (FEW) /LPF (0-3 (FEW))
[2023-05-29] MEDS ORDERED: CEFP200T20 PO (00:27)
[2023-05-29] MEDS ORDERED: cefTRIAXone 1,000 MG VIAL ONE (01:10)
== END 2023-05-29 01:35 | disposition home or self-care (01) ==
LOC: MED 20:54
DX: N39.0 Urinary tract infection, site not specified (principal); Z20.822 Contact with and (suspected) exposure to COVID-19; E11.9 Type 2 diabetes mellitus without complications; Z79.899 Other long term (current) drug therapy; Z79.1 Long term (current) use of non-steroidal anti-inflammatories (NSAID); Z79.82 Long term (current) use of aspirin
CPT/HCPCS: 81001; 87086; 87426; 87804; 96365; 96372; 99284; J0696; J1885

== ENCOUNTER 2023-09-17 11:37 | Emergency (ER) | payer BC ==
[~2023-09-17] VITALS: Ht 160 cm; Wt 81.6 kg
[~2023-09-17 11:37] MED LIST changes: +CEFP200T20 PO; +NAPR-337 PO; -NAPR-54 PO
[2023-09-17 11:41] VITALS: BP 158/65; PULSE 64; RESP 16; TEMP 97.3; O2SAT 99
[2023-09-17] MEDS: KETOROLAC 30 MG/ML VIAL IM ONE (11:58)
[2023-09-17] MEDS: ACETAMINOPHEN 325 MG TAB PO ONE (11:59)
[2023-09-17 12:25] LABS: APPEARANCE,URINE CLEAR (CLEAR); BILIRUBIN,URINE NEGATIVE (NEGATIVE); BLOOD, URINE NEGATIVE (NEGATIVE); COLOR,URINE YELLOW (YELLOW); LEUKOCYTE ESTERASE ,URINE TRACE (NEGATIVE); NITRITE, URINE NEGATIVE (NEGATIVE); PROTEIN,URINE NEGATIVE (NEGATIVE); UGLUCOSE 3+ (NEGATIVE); UROBILINOGEN,URINE 0.2 EU/dL (0.2 - 1)
[2023-09-17 12:32] LABS: ANION GAP 12.3 (8-16); CALCIUM 8.9 mg/dL (8.5-10.1); CARBON DIOXIDE 27.9 mmol/L (21-32); POTASSIUM 4.2 mmol/L (3.5-5.1)
[2023-09-17 12:37] LABS: ALBUMIN 3.6 g/dL (3.4-5.0); BILIRUBIN,DIRECT 0.1 mg/dL (0.0-0.3); TOTAL BILIRUBIN 0.3 mg/dL (0.0-1.0); TOTAL PROTEIN, SERUM 7.3 g/dL (6.4-8.2)
[2023-09-17 13:20] LABS: BASOPHILS % (AUTO) 0.6 % (0.0-2.0); EOSINOPHILS # (AUTO) 0.2 K/uL (0-0.4); EOSINOPHILS % (AUTO) 2.8 % (0.0-4.0); HEMATOCRIT 38.6 % (36-52); LYMPHOCYTES % (AUTO) 30.7 % (20.5-51.1); MEAN CORPUSCULAR HEMOGLOBIN 30 pg (27-31); MEAN CORPUSCULAR HGB CONC 34 g/dL (33-37); MEAN CORPUSCULAR VOLUME 89.7 fL (80-94); MONOCYTES # (AUTO) 0.5 K/uL (0.8-1.0); MONOCYTES % (AUTO) 7.1 % (1.7-9.3); NEUTROPHILS # (AUTO) 3.8 K/uL (1.8-7.7); NEUTROPHILS % (AUTO) 58.8 % (42.2-75.2); PLATELET COUNT (AUTO) 184 K/uL (140-450); RED CELL DISTRIBUTION WIDTH 14.8 % (11.6-13.7); WHITE BLOOD COUNT (AUTO) 6.4 K/uL (4.8-10.8)
[2023-09-17] MEDS ORDERED: POLY17PD72 PO (13:32)
[2023-09-17 13:40] VITALS: BP 190/68; PULSE 65; RESP 21; TEMP 36.28068; O2SAT 98
== END 2023-09-17 13:40 | disposition home or self-care (01) ==
LOC: MED 11:37
DX: R10.9 Unspecified abdominal pain (principal); E11.9 Type 2 diabetes mellitus without complications; Z79.4 Long term (current) use of insulin; Z79.899 Other long term (current) drug therapy
CPT/HCPCS: 36415; 74176; 80048; 80076; 81003; 85025; 93005; 96372; 99285; J1885

== ENCOUNTER 2024-02-08 15:31 | Emergency (ER) | payer BC ==
[~2024-02-08 15:31] MED LIST changes: -ACET-10509 PO; +ACET500T99 PO; +POLY17PD72 PO
== END 2024-02-08 15:51 | disposition left against medical advice (07) ==
LOC: MED 15:31
DX: M54.9 Dorsalgia, unspecified (principal); Z53.21 Procedure and treatment not carried out due to patient leaving prior to being seen by health care provider